=== PATIENT | female | born 1970 | race Caucasian/White ===

== ENCOUNTER → 2022-11-12 10:07 | Outpatient (CLI) | payer OTHER, SELFPAY ==
--- NOTE | 2022-11-12 10:19 | DI.CT.S_ITS ---
PROCEDURE: CT LUMBAR SPINE WO CON INDICATIONS: LUMBAR STENOSIS W/NEUROGENIC CLAUDICATION TECHNIQUE: Noncontrast 3 mm thick sections acquired from the T12 level to the sacrum. Sagittal and coronal reformats were constructed. For radiation dose reduction, the following was used: automated exposure control. COMPARISON: [facility] MR, MR LUMBAR SPINE WITHOUT CONTRAST, 12/26/2021, 15:07. [facility] Outside Film, CT, CT LUMBAR SPINE WITHOUT CONTRAST, 08/07/2022, 8:07. FINDINGS: Image quality: Excellent. Bones: There is normal bony alignment. No acute vertebral body compression fractures. No suspicious lytic or blastic bony lesions. No pars defects. T12-L1: Normal appearance L1-L2: Normal appearance L2-L3: Normal appearance L3-L4: Normal appearance L4-L5: Again noted is moderate multifactorial canal stenosis secondary to diffuse disc bulge and facet and ligament hypertrophy. There is [id number] bilateral foraminal narrowing. L5-S1: Again noted is a left paracentral disc protrusion with a degree of impingement on the left S1 nerve root in the left lateral recess. The right foramen is patent. There is moderate left foraminal narrowing. Soft tissues: No retroperitoneal masses or hematomas. Visualized aorta is normal in caliber. IMPRESSION: 1. Unchanged findings. 2. Moderate canal stenosis at L4-L5. 3. A left paracentral disc protrusion at L5-S1 results in a degree of impingement on the left S1 nerve root in the left lateral recess. There is also moderate left foraminal narrowing at this level. Dictated by: Cj Boudreaux M.D. on 11/12/2022 at 14:37 Approved by: Cj Boudreaux M.D. on 11/12/2022 at 14:43
== END ==
PROVIDERS: PCP Family Medicine; Referring Provider Orthopaedic Surgery Orthopaedic Surgery of the Spine; Visit Provider Orthopaedic Surgery Orthopaedic Surgery of the Spine
DX: M48.07 Spinal stenosis, lumbosacral region (principal); M51.27 Other intervertebral disc displacement, lumbosacral region; M48.062 Spinal stenosis, lumbar region with neurogenic claudication
CPT/HCPCS: 72131

== ENCOUNTER 2022-11-18 09:34 | Inpatient (IN) | payer OTHER, SELFPAY ==
[2022-11-06 07:57] VITALS: BMI 36.6
[2022-11-18] VITALS (23 sets, daily range): BP systolic 81–169; BP diastolic 43–99; PULSE 85–104; RESP 10–18; TEMP 36–36.9; O2SAT 91–98; BMI 36.6
[2022-11-18] MEDS: LACTATED RINGERS 1,000 ML 42 ML IV ×2 (10:27→16:32)
--- NOTE | 2022-11-18 11:23 | PM.PREOP ---
Pre-operative Note COVID-19 Criteria for continued procedure: Expected advancement of disease process, Possibility delay results in more complex future surgery or treatment, Increased loss of function, Continuing or worsening of significant or severe pain, Deterioration of the patient's condition or overall health and Delay expected to result in less-positive ultimate med/surg outcome Interval Note History & Physical reviewed/Exam performed by Physician: Yes Changes to H&P: No
[2022-11-18] MEDS: CEFAZOLIN 2 GM/100 ML PREMIX 100 ML IV ×2 (12:12→19:37)
--- NOTE | 2022-11-18 12:48 | SUR.OPER ---
Prone on spine table, head in foam head support, padded chest and pelvic supports, gel pad at knees, lower legs supported by pillows; nipples, genitalia and toes free of pressure, arms secured on foam padded arm boards at <90 degrees abduction. Tape over blanket at thigh secured to table.
[2022-11-18] MEDS: BUPIVACAINE 0.25% (PF) 60 ML, EPINEPHrine 0.15 MG INJ (12:57)
[2022-11-18] MEDS: BUPIVACAINE LIPOSOME 266 MG/20 ML VIAL INJ (12:58)
[2022-11-18] MEDS: ACETAMINOPHEN IV 1,000 MG/100 ML VIAL 400 MG IV (14:38)
--- NOTE | 2022-11-18 15:04 | DI.RAD.S_ITS ---
PROCEDURE: XR LUMBAR SPINE 2-3V INDICATIONS: L 4-5, L5-S1 TLIF TECHNIQUE: 2 views of the lumbar spine were acquired. COMPARISON: None. FINDINGS: Bones: Limited fluoroscopic views of L4 through S1 TLIF. The hardware appears intact. IMPRESSION: Limited fluoroscopic views of L4 through S1 TLIF. The hardware appears intact. Dictated by: Gerardo Vieira M.D. on 11/18/2022 at 16:00 Approved by: Gerardo Vieira M.D. on 11/18/2022 at 16:00
--- NOTE | 2022-11-18 15:18 | PM.OP.1 ---
Operative Date/Time/Diagnoses Date of procedure: 11/18/22 Time of procedure: 12:50 Pre-op diagnosis: 1. L4-5, L5-S1 spinal stenosis with neurogenic claudication 2. Lumbar spondylosis with radiculopathy Post-op diagnosis: same Procedure & Clinicians Procedure: 1. L4-5, L5-S1 Postero-lateral and posterior interbody fusion 2. L4-5, L5-S1 interbody cage placement. 3. L4-5, L5-S1 decompressive laminectomy with bilateral facetecomies 4. L4-5, L5-S1 Posterior segmental instrumentation 5. [place] of bone marrow from iliac crest 6. Utilization of microsurgical technique and operating microscope 7. Utilization of robotic assisted navigation Same procedure as scheduled: Yes Indications: Patient has been having chronic back pain and worsening lumbar radiculopathy and symptoms of neurogenic claudication. Patient failed multiple conservative management with worsening pain weakness and numbness in her lower extremity. Patient has been having difficulty performing activity of daily living. After discussing risks benefits of treatment options, patient elected proceed with surgery. Surgeon: Waleska Orta Auxiliary Engineer: Lilian Cortez Click Yes if Unassisted: No Anesthesia Type: General Operative Notes Closure Type: primary Specimen(s): none sent Prosthetic devices, grafts, tissues, transplants, or devices: Globus CREO MIS screws, Rise cages Applied: catheter Estimated Blood Loss (mL): 50 Blood products transfused: none Procedure in detail: Patient was seen in the preoperative area. Risks and benefits of the surgery was discussed with the patient. Informed consent was obtained from the patient and placed in the chart. Surgical site was marked. Patient was taken to the operative room. General anesthesia was administered. Prophylactic antibiotic was given to the patient less than 30 min before the incision was made. Patient was placed into a prone position on the Javier table. Patient's back was then prepped and draped in the sterile fashion. Time-out was performed at this time. After patient was prepped and draped, patient's PSIS was palpated and marked bilaterally. Small 1 cm incision was made over the PSIS for placement of the reference probes. Two trocar was placed into the PSIS 1 on each side. The reference probe was attached to the trocar of the reference apparatus. At this time the C-arm imaging was used to confirm AP and lateral of L4-L5, L5-S1 vertebrae and merged the C-arm imaging using the [employer] robotic navigation system with the CT of the lumbar spine. After successful merging was completed and confirmed, skin marker was used to diane out the skin incision using the [employer] robotic arm. Bilateral incision was made at this time. Pre templated trajectory was used and guided using the [employer] robotic navigation system for bilateral L4, L5, S1 pedicle screw placement. This was done by using the robotic arm to guide the high-speed bur to make a cortical entry point. Next a drill was placed also using the robotic arm and guided using the navigation system drilling partially through bilateral L4, L5 and S1 pedicles. Next L4, L5, S1 pedicle screws it was pre templated and measured was placed onto the power party bus driver and inserted into the pedicles bilaterally. After all 6 screws were placed C-arm imaging was taken of both AP and lateral to confirm the placement. Excellent placement of the screws were confirmed and a matched precisely with the pre planned screw placement using the navigation system. MARs retractor was inserted using peer[employer] guidence. Globus MARS retractors was placed inside the incision and docked onto the L4 and L5 lamina. Using microsurgical technique and operating microscope, a L4, L5 laminectomy and L4-5, L5-S1 facetectomy was performed using a Kerrison rongeur. The laminectomy and facetectomy was performed in order to decompress patient's cauda equina as well as the nerve roots exiting at the L4-5, L5-S1 level. Patient was found have severe lateral recess and neural foramen stenosis which was fully decompressed after the laminectomy facetectomy. More than 75% of the facets were removed during the process of decompression rendering L4-5, L5-S1 level grossly unstable and required a fusion procedure at the same time. The disc space at L4-5, L5-S1 was identified, and a total diskectomy was performed at L4-5, L5-S1 level. The endplates were decorticated using a rasp and shaver. The total diskectomy and decortication was performed at L4-5, L5-S1 level in order to to accomplish a L4-5, L5-S1 fusion. The local bone from the laminectomy and facetectomy was saved for local bone grafting. After the total diskectomy and decortication was completed, Trifecta bone graft material was combined with local bone that was harvested earlier. At this time, a separate skin is incision was made over the iliac crest. A Jamshidi needle was inserted into the iliac crest through a separate skin incision. 5 cc of bone marrow aspiration was obtained through the separate skin incision using a Jamshidi needle from the iliac crest. The bone marrow aspiration was combined with local bone and the Trifecta bone grafting material. The bone grafting material was placed into the L4-5, L5-S1 interbody space along with a expandable cage. The cage was expanded to its maximum height using the torque limiting screwdriver. The disc preparation as well as the cage insertion were also performed under navigation guidance. After the cage was placed, AP and lateral C-arm imaging was taken to confirm placement of the cage and excellent position was confirmed. Globus MARS retractor was inserted and docked onto the L4-5, L5-S1 posterolateral gutter on the right side. Using the power drill, posterior-lateral decortication was performed at L4-5, L5-S1 level until bleeding cortical bone was identified. The remaining bone grafting material was placed into the L4-5, L5-S1 posterior lateral gutter he order to accomplish posterolateral fusion at the L4-5, L5-S1 level. At this time the tulips were attached to the L4, L5, S1 pedicle screw shanks. After measuring the length of the rods, they were inserted into the tulips of the pedicle screws and locked in place using locking caps and torque limiting screwdriver bilaterally. Total 6 caps and 2 titanium rods was used in order to complete the posterior instrumentation construct. After all the hardware was placed, and confirmed with AP and lateral C-arm imaging, the wound was then irrigated with sterile normal saline and packed with Ray-Abraham gauze for 3 min to accomplish hemostasis. After the gauze was removed the deep fascia was closed with #1 Vicryl suture. The subcutaneous layer was closed with 2-0 Vicryl. The skin was closed with skin nacho. Patient tolerated the procedure well. There were no complications. The Operation could not have been safely performed without compromising the technical result or length of the procedure, without the assistance of a skilled medical surgical tech. The medical surgical tech was medically necessary for proper positioning, retraction and manipulation of instruments, proper exposure, surgical preparation, and manipulation of tissue. Neuro monitoring system was used to monitor patient's neurologic status throughout entire procedure. There was no disturbance of the neural monitoring signals throughout the case. Complications: none Post-operative Condition: stable Disposition: PACU Plan for aftercare: Admit to inpatient hospital
--- NOTE | 2022-11-18 17:25 | SUR.PHASEI ---
SBAR report called Tiny NELSON. Pt transfered to room 208 by Calin Nelson on [facility] cell [facility].
--- NOTE | 2022-11-18 18:37 | PC.NURSE ---
Patient complains of pain and then falls right back to sleep, hesitent to give patient pain medication at this time. Will wait until she is more awake. Dressing to low back is cdi, she is tolerating ivf and is at bedside.
[2022-11-18] MEDS: OXYCODONE IR 10 MG TABLET PO (19:35)
[2022-11-18] MEDS: LACTATED RINGERS 1,000 ML 125 ML IV (19:36)
[2022-11-18] MEDS: CYCLOBENZAPRINE 10 MG TABLET 5 MG PO (20:46)
[2022-11-18] MEDS: SENNOSIDES 8.6 MG TABLET 17.2 MG PO (20:47)
[2022-11-18] MEDS: carvediloL 12.5 MG TABLET 25 MG PO (20:47)
[2022-11-18] MEDS: METFORMIN HCL 500 MG TABLET 1000 MG PO (20:47)
[2022-11-18] MEDS: SERTRALINE 50 MG TABLET 100 MG PO (20:47)
[2022-11-18] MEDS: DOCUSATE 100 MG CAPSULE PO (20:47)
[2022-11-18] MEDS: INSULIN LISPRO 100 UNIT/ML 3ML VIAL SUBCUT (20:48)
[2022-11-18] MEDS: INSULIN NPH 100 UNIT/ML 10ML VIAL 35 UNIT SUBCUT (20:49)
[2022-11-18] MEDS: HYDROMORPHONE 0.5 MG INJ IV (22:07)
[2022-11-18] MEDS: LORazepam 0.5 MG TABLET PO (23:54)
[2022-11-18] MEDS: ACETAMINOPHEN 325 MG TABLET 650 MG PO (23:54)
[2022-11-19] VITALS (13 sets, daily range): BP systolic 105–135; BP diastolic 59–75; PULSE 93–131; RESP 16–18; TEMP 36.3–38.2; O2SAT 91–96
[2022-11-19] MEDS: OXYCODONE IR 10 MG TABLET PO ×6 (02:06→23:36)
[2022-11-19] MEDS: CEFAZOLIN 2 GM/100 ML PREMIX 100 ML IV (04:11)
[2022-11-19] MEDS: HYDROMORPHONE 0.5 MG INJ IV (04:12)
[2022-11-19 05:42] LABS: Hematocrit 37.1 % (36-46); Hemoglobin 12.4 g/dL (12.0-16.0)
--- NOTE | 2022-11-19 07:39 | PM.PNPO.1 ---
Subjective Subjective Date Patient Seen: 11/19/22 Time Patient Seen: 07:39 Interval history: Patient's pain is moderate. Patient has not been out of bed since after surgery. Patient has her home to assist her. No fever or chills. No nausea or vomiting. Exam Vital Signs (past 8 hours): - 11/18/22 23:54 11/19/22 04:13 Temperature 97.3 F L 97.3 F L Pulse Rate 97 H 93 H Respiratory Rate 18 16 Blood Pressure 142/80 H 135/75 Pulse Oximetry 96 96 Oxygen Flow Rate 1 1 Fraction of Inspired Oxygen 24 SaO2/FiO2 Ratio 387 Oxygen Delivery Method Nasal Cannula Oxygen Flow Rate 1 Narrative Exam Narrative: 52-year-old female resting comfortably in bed in no apparent distress. Motor functions intact bilateral lower extremities. Const General: cooperative and comfortable Nutritional Appearance: average body habitus Orientation: alert Resp Effort & Inspection: normal respiratory effort and able to speak in complete sentences Objective Labs 11/19/22 05:00 Labs: Laboratory Results - last 24 hr 11/19/22 05:00 Hgb 12.4 Hct 37.1 PFSH Medical History Allergic rhinitis Anemia Anxiety Arthritis Depression Diabetes (2003) History of COVID-19 (07/2021) History of syncope HLD (hyperlipidemia) HTN (hypertension) PVCs (premature ventricular contractions) Sciatica Spinal stenosis Uses self-applied continuous glucose monitoring device Vitamin D deficiency Surgical History History of surgery (10/2021) Hx of appendectomy (1995) Hx of cholecystectomy (1995) Hx of dilation and curettage (09/28/19) Hx of removal of cyst Social History household members: spouse and children Smoking Status: Never smoker alcohol intake: never Assessment & Plan Post-op Postoperative Procedures: Procedures Operation Date: 11/18/22 11:15 Actual Procedure Side Surgeon p L4-5, L5-S1 TLIF w. posterior instrumentation -Robot Waleska Orta MD Postoperative day: 1 Postoperative status: doing well Postoperative plan: routine post-op care Postoperative plan narrative: Disposition possible home today or tomorrow Quality VTE Deep Vein Thrombosis/Pulmonary Embolism Present on Admission: No
[2022-11-19] MEDS: LOSARTAN 25 MG TABLET PO (08:39)
[2022-11-19] MEDS: EZETIMIBE 10 MG TABLET PO (08:39)
[2022-11-19] MEDS: carvediloL 12.5 MG TABLET 25 MG PO ×2 (08:40→20:33)
[2022-11-19] MEDS: FERROUS SULFATE 325 MG TABLET PO (08:40)
[2022-11-19] MEDS: DOCUSATE 100 MG CAPSULE PO ×2 (08:40→20:32)
[2022-11-19] MEDS: METFORMIN HCL 500 MG TABLET 1000 MG PO (08:41)
[2022-11-19] MEDS: INSULIN LISPRO 100 UNIT/ML 3ML VIAL SUBCUT ×3 (09:01→17:14)
[2022-11-19] MEDS: INSULIN NPH 100 UNIT/ML 10ML VIAL 35 UNIT SUBCUT ×2 (09:01→20:52)
--- NOTE | 2022-11-19 09:12 | PT.IIE ---
Current Diagnoses Other spondylosis with radiculopathy, lumbar region (11/18/22) Spinal stenosis, lumbar region with neurogenic claudication (11/18/22) Surgery Performed Operation Date: 11/18/22 11:15 Actual Procedures p L4-5, L5-S1 TLIF w. posterior instrumentation -Robot - Waleska Orta MD Surgical History (Last Reviewed 11/19/22 @ 07:41 by Niels Samuel PA-C) History of surgery (10/2021) Hx of appendectomy (1995) Hx of cholecystectomy (1995) Hx of dilation and curettage (09/28/19) Hx of removal of cyst Medical History (Last Reviewed 11/19/22 @ 07:41 by Niels Samuel PA-C) Allergic rhinitis Anemia Anxiety Arthritis Depression Diabetes (2003) History of COVID-19 (07/2021) History of syncope HLD (hyperlipidemia) HTN (hypertension) PVCs (premature ventricular contractions) Sciatica Spinal stenosis Uses self-applied continuous glucose monitoring device Vitamin D deficiency Physical Therapy Inpatient Evaluation/Re-Eval M1 PT/OT-IP Prior Functional Status Start: 11/19/22 11:51 Freq: NEEDED Status: Active Protocol: Document 11/19/22 09:12 AB (Rec: 11/19/22 11:53 AB [id number]) Medical Review Prior Functional Status Medical History Reviewed Yes Communication able to make needs known Mobility and Gait pt stated that she is independent with all mobilities and ambulation without AD Social History Household Members spouse Living Arrangements House Number of Floors (Floors) One Floor Number of Stairs To Enter/Railing? 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 pt stated that her mother has a walker but not sure what type M2 PT-IP Current Condition Start: 11/19/22 11:51 Freq: NEEDED Status: Active Protocol: Document 11/19/22 09:12 AB (Rec: 11/19/22 11:54 AB [email or web address]) Physical Therapy Current Condition Current Condition Evaluation Date 11/19/22 Treatment Diagnosis s/p L4-5, L5S1 TLIF; difficulty in walking Onset Date 11/18/22 M3 PT-IP Subjective Start: 11/19/22 11:51 Freq: NEEDED Status: Active Protocol: Document 11/19/22 09:12 AB (Rec: 11/19/22 11:55 AB [email or web address]) Subjective Physical Therapy Visit Type Type Initial Evaluation Visit Start Time 09:12 Visit Stop Time 09:48 Total Visit Minutes 36 Number of 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 Physical Therapy Visit Comments Patient Comments agreeable to do PT Therapy Pain Assessment Pain When Pain Assessed At Rest Pain Present Pain Present Pain Reported Location Lower Back Intensity 8 Scale Used Numeric (0 - 10) Description Spasm Pain Management Techniques Distraction,Modification of Treatment,Re-positioning, Timing of Activity with Medications M4 PT-IP Mobility and Gait Start: 11/19/22 11:51 Freq: NEEDED Status: Active Protocol: Document 11/19/22 09:12 AB (Rec: 11/19/22 13:29 AB [email or web address]) PT-Bed Mobility Assessment Rolling Type of Rolling Log Rolling Level of Assist Moderate Assistance Supine to Sit Supine to Sit Minimal Assistance,1 Person Assistance Sit to Supine Sit to Supine Moderate Assistance,1 Person Assistance Scooting Scooting Up and Down in Bed Maximum Assistance PT-Transfer Assessment Comments Mobility Comments pt spine in bed and spouse in room. pt agreeable to do PT. BP in supine: 118/66. educated pt on back precautions and log roll bed mobility. pt completed log roll supine to sit mod A and max cues. able to sit on EOB SBA. c/o dizziness. BP checked: 95/57. pt sat on EOB for ~ 1 min and continues to c/o dizziness. BP checked: 87 /51. instructed pt to lay back in bed and completed log roll sit to supine mod A and cues. positioned pt in bed. max A x 2 for scooting up to the bed. BP checked: 101/52. nurse aware of low BP. Call light and table placed within reach. PT-Balance Assessment Sitting Balance and Reactions Static Sitting Balance Ability Good Dynamic Sitting Balance Ability Good Standing Balance and Reactions Device Used n/t M5 PT-IP Objective Assessments Start: 11/19/22 11:51 Freq: NEEDED Status: Active Protocol: Document 11/19/22 09:12 AB (Rec: 11/19/22 13:29 AB [email or web address]) Orientation Orientation/Cognition Level of Alertness Alert Orientation Name,Place,Situation Language Function Ability No Deficits Noted Safety Awareness Decreased Safety Awareness Memory Description No Deficits Noted Gross Range of Motion Lower Extremity ROM Assessment Within Functional Limits Strength Comments Strength Comments RLE: 4-/5 LLE: 4/5 Sensation Assessment Sensation Gross Sensation WNL Muscle Tone Muscle Tone WNL Yes M6 PT-IP Treatment Start: 11/19/22 11:51 Freq: NEEDED Status: Active Protocol: Document 11/19/22 09:12 AB (Rec: 11/19/22 13:29 AB [email or web address]) Physical Therapy Treatment Education Education Provided Precautions,Weight Bearing Status,Post-Op Packet,Safety M7 PT-IP Assessment and Plan Start: 11/19/22 11:51 Freq: NEEDED Status: Active Protocol: Document 11/19/22 09:12 AB (Rec: 11/19/22 13:29 AB [email or web address]) PT Summary Assessment and Plan Potential Rehabilitation Potential Fair Status of Condition at Evaluation Evolving Summary Impairments Pain,ROM,Strength,Balance, Coordination,Bed Mobility, Transfers,Gait,Activity Tolerance Assessment Summary pt s/p L4-5 L5S1 TLIF POD1. pt unable to tolerate much activity this morning and presents with orthostatic hypotension with BP decreased to 87/51 in sitting from 118/ 66 supine. pt requiring mod A with log roll bed mobility. unable to stand, transfer or ambulate at this time. pt plans to go home with spouse to assist her. will conduct caregiver training when appropriate as well as stair climbing training. will continue to assess progress. Goals Bed Mobility Goal Standby Assistance Transfer Goal Standby Assistance,Front Wheeled Walker Gait Goal Standby Assistance,Front Wheel Walker Gait Distance 150 Other Goals improve bed mobility, transfers and ambulation using FWW mod I 250 ft up/down 2 platform steps using FWW SBA Days to Meet Goals 10 Frequency of Treatment Frequency Of Treatment Twice a Day Treatment Plan Physical Therapy Treatment Plan Bed Mobility Training,Transfer Training,Gait Training, Therapeutic Exercise,Balance Retraining,Post Op Education, Discharge Planning,Hot or Cold Pack,Neuromuscular Re-ed, Coordination Retraining,Manual Therapy Other Recommendations and Next Treatment pt will be seen for PT bid or Focus as tolerated Precautions Lumbar Precautions Log Roll,No Twisting,Limit Bending,Lifting Restriction of 10 lbs,Gait Belt above Incisional Area Recommendations To Nursing Amount of Assist Needed PT/OT Assist Only Discharge Recommendations PT Discharge Recommendations Home with Assistance Equipment Needed for Home Before FWW Discharge Transportation Needs at Discharge Private Vehicle
[2022-11-19] MEDS: CYCLOBENZAPRINE 10 MG TABLET 5 MG PO ×2 (10:25→20:37)
--- NOTE | 2022-11-19 10:48 | PC.NURSE ---
Addendum entered by Quan Pappas R.N. 11/19/22 18:41: Pt declined to have Bowden removed as she hasn't been able to successfully stand or sit for any length of time today. PT will work with Pt again in the a.m. Addendum entered by Quan Pappas R.N. 11/19/22 15:25: Pt restful at present. see PT/OT note. Original Note: A&O well versed in her diabetes care. Tried up with PT without success b/p 80/56 hr 120. Pt settled to bed.
[2022-11-19] MEDS: INSULIN LISPRO 100 UNIT/ML 3ML VIAL 10 UNIT SUBCUT ×2 (12:24→17:14)
--- NOTE | 2022-11-19 14:10 | OT.IP.EVAL ---
Current Diagnoses Other spondylosis with radiculopathy, lumbar region (11/18/22) Spinal stenosis, lumbar region with neurogenic claudication (11/18/22) Surgery Performed Operation Date: 11/18/22 11:15 Actual Procedures p L4-5, L5-S1 TLIF w. posterior instrumentation -Robot - Waleska Orta MD Past Medical History (Last Reviewed 11/19/22 @ 07:41 by Niels Samuel PA-C) Allergic rhinitis Anemia Anxiety Arthritis Depression Diabetes (2003) History of COVID-19 (07/2021) History of syncope HLD (hyperlipidemia) HTN (hypertension) PVCs (premature ventricular contractions) Sciatica Spinal stenosis Uses self-applied continuous glucose monitoring device Vitamin D deficiency Surgical History (Last Reviewed 11/19/22 @ 07:41 by Niels Samuel PA-C) History of surgery (10/2021) Hx of appendectomy (1995) Hx of cholecystectomy (1995) Hx of dilation and curettage (09/28/19) Hx of removal of cyst Occupational Therapy Inpatient Evaluation/Re-Eval M1 PT/OT-IP Prior Functional Status Start: 11/19/22 14:40 Freq: NEEDED Status: Active Protocol: Document 11/19/22 13:43 [facility] (Rec: 11/19/22 14:52 [facility] [id number]) Medical Review Prior Functional Status Medical History Reviewed Yes Communication able to make needs known Mobility and Gait pt stated that she is independent with all mobilities and ambulation without AD Activities of Daily Living and IADL's Increased pain with ADl and IADL needs. 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 Social History Household Members spouse Living Arrangements House Number of Floors (Floors) One Floor Number of Stairs To Enter/Railing? 2 platform steps to enter the house Home Environment Standard Height Toilet,Walk in Shower Home Equipment Raised Toilet Seat w/Armrests, Hand Held Shower,Grab Bars In Shower Employment Status [employer] Employed Additional Social History Comment pt stated that she works as a book keeper pt stated that her mother has a walker but not sure what type M2 OT-IP Current Condition Start: 11/19/22 14:40 Freq: Status: Active Protocol: Document 11/19/22 13:43 [facility] (Rec: 11/19/22 14:52 [facility] [id number]) Occupational Therapy Current Condition Current Condition Evaluation Date 11/19/22 Treatment Diagnosis S/p L4-5, L5-S1 TILF Diagnosis Onset Date 11/18/22 Post Operative Precautions Lumbar Precautions Log Roll,No Twisting,Limit Bending,Lifting Restriction of 10 lbs,Gait Belt above Incisional Area M3 OT- IP Subjective and Pain Start: 11/19/22 14:40 Freq: Status: Active Protocol: Document 11/19/22 13:43 [facility] (Rec: 11/19/22 14:52 [facility] [id number]) OT- Subjective Occupational Therapy Visit Type Type Initial Evaluation Visit Start Time 13:43 Visit Stop Time 14:10 Total Visit Minutes 27 Occupational Therapy Visit Comments Patient Comments Pt agreed to try to get up. Patient/Caregiver Goals TO go home. OT Pain Assessment Pain When Pain Assessed At Rest Pain Present Pain Present Pain Reported Location Lower Back Intensity 8 Scale Used Numeric (0 - 10) M4 OT- IP ADL's Start: 11/19/22 14:40 Freq: Status: Active Protocol: Document 11/19/22 13:43 [facility] (Rec: 11/19/22 14:52 [facility] [id number]) OT [id number] Comments OT Self-Feeding Comments No issues anticipated. OT ADL-Grooming Comments OT Grooming Comments No issues anticipated, not performed due to low BP. OT ADL-Oral Care Comments Oral Care Comments Not performed. OT ADL-Dressing General Eval Lower Body Dressing Ability Maximum Assistance Comments OT Dressing Comments Able to practice use of breakfast and room attendant and sock aid with pt before pt not feeling well/ nauseated while seated on the edge of the bed. OT ADL-Toileting General Evaluation Toileting Ability Total Assistance Comments OT Toileting Comments Bow[place] in place. Pt has a toilet paper wand at home to use. Suggested use of wet ones , brief/pads, and to try to mandy drinking her liquids at night. OT ADL-Bathing Comments OT Bathing Comments Not performed. M5 OT- IP IADL's Start: 11/19/22 14:40 Freq: Status: Active Protocol: Document 11/19/22 13:43 [facility] (Rec: 11/19/22 14:52 [facility] [id number]) OT-Instrumental Activities of Daily Living Deficits IADL Deficits Identified Deficits Home Safety Awareness Awareness of Need for Assistance at Home Good Awareness Ability to Problem Solve Emergency Able to Problem Solve Situations Home Safety Comments Pt has a supportive to be able to assist her for the next 2 weeks. M6 OT- IP Functional Cognition Start: 11/19/22 14:40 Freq: Status: Active Protocol: Document 11/19/22 13:43 [facility] (Rec: 11/19/22 14:52 [facility] [id number]) Cognitive Factors Limiting Selfcare Function Cognitive Ability Level of Alertness Alert Patient Orientation Name,Place,Situation Attention Span Ability Capable of Focused Attention, Capable of Sustained Attention Ability to Follow Commands Able to Follow One Step Commands Safety Awareness Decreased Recall of Precautions Cognitive Comments Cognitive Assessment Comments Pt not able to recall her precautions, but after initial education able to recall her back precautions. OT- Vision and Hearing OT- Hearing Assessment OT- Hearing Assessment WFL OT- Vision Assessment Visual Acuity Contact Lenses M7 OT- IP Mobility and Balance Start: 11/19/22 14:40 Freq: Status: Active Protocol: Document 11/19/22 13:43 [facility] (Rec: 11/19/22 14:52 [facility] [id number]) OT- Bed Mobility Assessment Rolling Level of Assistance Contact Guard Assistance Supine to Sit Supine to Sit Assist Contact Guard Assistance Sit to Supine Sit to Supine Assist Minimal Assistance OT-Transfer Assessment Comments Mobility Comments BP Supine 127/75, CGA to get to the edge of the bed. Sitting BP 135/71 and after several minutes dropped to 118 /65 and pt not feeling well and dizzy and helped back to supine and BP 115/63. OT- Balance Assessment Sitting Balance and Reactions Static Sitting Balance Ability Good Dynamic Sitting Balance Ability Good M9 OT- IP Assessment and Plan Start: 11/19/22 14:40 Freq: Status: Active Protocol: Document 11/19/22 13:43 [facility] (Rec: 11/19/22 14:52 [facility] [id number]) OT Summary Assessment and Plan Potential Rehabilitation Potential Good Analytic Complexity at Evaluation Low Summary OT Impairments Pain,Strength,Balance, Functional Mobility,Grooming, Dressing,Toileting,Bathing, Toilet Transfers,Shower Transfers Progress Towards Goals Slow Progress due to Pain,Slow Progress due to Medical Issues Assessment Summary Pt low complexity and main barriers are low BP after sitting up and steps. Pt just able to tolerate sitting up at the edge of the bed today. Pt hoping to go home when medically stable and her to be there to assist. Goals Grooming Goal Independent Dressing Goal Independent Toileting Goal Independent Bathing Goal Standby Assistance Toilet Transfer Goal Independent Shower Transfer Goal Independent Patient/Caregiver Education Goal Demonstrate Post-Op Precautions,Caregiver Independent Assisting Patient Days to Meet Goals 5 Frequency of Treatment Frequency Of Treatment Once a Day Treatment Plan OT Treatment Plan ADL Training,Functional Mobility,Patient/Family Education,Discharge Planning Other Treatment Recommendations and Next caregiver training Treatment Focus Discharge Recommendations OT Discharge Recommendations Home with Assistance Other Discharge Recommendations Pending progress most likely home with assist. Transportation Needs at Discharge Private Vehicle
--- NOTE | 2022-11-19 14:18 | PT-IP ANOTE ---
Pt found in room with OT, OT reports pt continues to be orthostatic with symptoms and is not appropriate at this time. Will check back in tomorrow morning.
--- NOTE | 2022-11-19 14:39 | CM.DANOTE ---
Patient is a 52 yo female who was admitted on 11/18/22 for TLIF. Pt has [place] for insurance and her PCP is Eileen Hector. EMR was reviewed. Per Ortho, pt tolerated procedure well and pending therapies can likely d/c home when stable. Per PT/OT, able to work with pt a little today with bed mobility but due to orthostatics were limited on eval. Pt currently requiring assist due to dizziness but anticipate pt will progress once bp issues stable for home with spouse assist and FWW. Will need to do CG training and stairs when pt more medically appropriate. SW met bedside with pt and spouse and they confirm they live in [place] and are active and independent at baseline. Pt drives, does not use DME for ambulation at baseline, and completes ADLs independently. 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 Pt and spouse preference is home when stable and hopeful to feel better tomorrow to work with PT/OT for d/c to home. Pt thinks she has access to a FWW at d/c. Plan: SW to follow for additional PT/OT tomorrow when bp more stable to confirm safe d/c home with spouse assist and any further identified discharge planning needs. NIDA Oh Discharge Planning/Care Management CM Discharge Assessment Start: 11/19/22 14:37 Freq: Status: Active Protocol: Document 11/19/22 14:37 BF (Rec: 11/19/22 14:38 BF [id number]) Discharge Planning Assessment Assigned Hair Spring Cutter NIDA Madrigal DPOA/Assigned Designee Name spouse Toshannan Contact Information [phone] Advance Directives? No Advance Directives on File No History Provided By Patient,Significant Other, Medical Record Has Patient been admitted in last 30 No days? Prior Living Arrangements House Household Members spouse Type of transporation used prior to Drives own vehicle admit Independent with ADL's Yes Is patient alert and oriented? Yes Caregiver for Another No Community Services used prior to Physical Therapy admission: Patient/Family Preference OP PT Therapy Barriers to Discharge No Discharge Plan Home Transportation Arrangement spouse plans to provide transport at d/c Referrals Initiated None needed Additional Comment Pending further PT/OT and orthostatics Whiteboard Updated in Patient Room with Yes name and ext. # of Hair Spring Cutter Review Status In Process Please Provide Date Initial DC 11/19/22 Assessment Was Performed Next Review Type Continued Stay Review Pre-Anesthesia Assessment Start: 11/04/22 09:40 Freq: Status: Complete Protocol: Document 11/06/22 07:57 CAB (Rec: 11/04/22 10:42 CAB [id number]) Pre-Anesthesia Assessment Patient Information Reviewed Via Phone Assessment Assessment Completed With Patient Diagnostic Results BMP/CMP,CBC,EKG Comment Outside labs/EKG scanned Primary Care Provider Eileen Hector Seen Specialist in Last 12 Months Yes Specialist Seen Jersey Knitter,Derrick Hand, Orthopedist Comment Endocrine visit 10/02/22 scanned Primary Language Liberian Zoo Director Required No Height 157.48 cm Weight 90.718 kg Body Mass Index (BMI) 36.6 Hearing Ability Normal Visual Assist Contacts,Glasses Dentition Type Teeth, Natural Present Barriers to Learning None Hx Anesthesia Reactions No Hx Family Anesthesia Reaction No Hx Malignant Hyperthermia No Hx Blood Transfusions No Anesthesia Review Requested No Certified Breastfeeding Educator No alcohol intake never Smoking Status Never smoker Substance Use Type does not use Pain Present Pain Reported Musculoskeletal Symptoms Back Pain,Radiating Pain into Limb History of Falling (Recent or History of No ) Patient is completely paralyzed or No completely immobile Mental Status Oriented to own ability Is patient on oxygen? No Does patient have NOWAK/SOB No Hx Sleep Apnea No Currently Taking a Beta Amalia Yes: Carvedilol Can You Climb a Flight of Stairs Without Yes SOB Hx Chest Pain No Hx SOB No Hx Syncope or Dizziness Yes: Related to in-office invasive procedures Anti-Coagulant Therapy No Has a Jersey Knitter Yes: Last visit 10/19/[address] Danielson Cardiac Testing No Hx Pacemaker/ICD No Pacemaker Rep Required? No Comment Cardiac records scanned Diet Type At Home Regular Dysphagia No Urinary Catheter Present No Hx Urinary Self Catheterization No Diabetes Yes: Pt wears CGM HgbA1C 8.5 Date 07/24/22 Patient No Lactating No Presence of External or Internal Medical Yes: Continuous glucose Devices monitor Have you had any close contact with No someone diagnosed with COVID-19? Received a COVID vaccine? Yes Received all doses? Yes Marital Status Lives With spouse,children Current Living Arrangements House Number of Floors (Floors) One Floor Support System Child/Children,Spouse Does the Patient Have Assistance After Yes Surgery Patient Discharge Plan Description Return Home Comment Pt advised 1-2 night length of stay per surgeon Feels Safe in Current Environment Yes Been Physically Hurt or Threatened By a No Person in Current Environment Do you have thoughts of harming yourself None or others? Are you currently considering suicide? No Do you have a plan to hurt yourself or No Plan others? Do You Have Any Spiritual Beliefs That No May Affect Your HC Choices? Do You Have Any Cultural Practices That No May Affect Your HC Choices? Who Can We Speak to About Patient's Care Family, friends Identifying Code for Release of Patient Declines to issue Information Health Care Proxy/Next of Kin Lázaro () Health Care Proxy Emergency Contact Name Lázaro () Emergency Contact Advance Directives? No Power of Bow Making Machine Operator No PAC Instructions Durable medical equipment, Medications to take/avoid, Nasal antibiotic,No ETOH/ petroleum product on skin DOS, NPO,Post-op transportation, Sensory aids,Sturdy shoes/ comfortable clothes,Do not bring valuables and remove jewelry
[2022-11-19] MEDS: SERTRALINE 50 MG TABLET 100 MG PO (20:32)
[2022-11-19] MEDS: SENNOSIDES 8.6 MG TABLET 17.2 MG PO (20:32)
[2022-11-19] MEDS: ACETAMINOPHEN 325 MG TABLET 650 MG PO (20:35)
[2022-11-20 06:44] VITALS: BP 117/71; PULSE 107; RESP 16; TEMP 37.1; O2SAT 94
[2022-11-20] MEDS: OXYCODONE IR 10 MG TABLET PO ×3 (06:51→14:48)
[2022-11-20] MEDS: ACETAMINOPHEN 325 MG TABLET 650 MG PO (06:51)
[2022-11-20 08:00] VITALS: BP 111/61; PULSE 107; RESP 18; TEMP 36.6; O2SAT 93
--- NOTE | 2022-11-20 08:02 | PM.DS.1 ---
History of Present Illness History of Present Illness Date Patient Seen: 11/20/22 Time Patient Seen: 08:02 Chief complaint: INPT Narrative: Operative Date/Time/Diagnoses Date of procedure: 11/18/22 Time of procedure: 12:50 Pre-op diagnosis: 1. L4-5, L5-S1 spinal stenosis with neurogenic claudication 2. Lumbar spondylosis with radiculopathy Post-op diagnosis: same Procedure & Clinicians Procedure: 1. L4-5, L5-S1 Postero-lateral and posterior interbody fusion 2. L4-5, L5-S1 interbody cage placement. 3. L4-5, L5-S1 decompressive laminectomy with bilateral facetecomies 4. L4-5, L5-S1 Posterior segmental instrumentation 5. Hallie of bone marrow from iliac crest 6. Utilization of microsurgical technique and operating microscope 7. Utilization of robotic assisted navigation Same procedure as scheduled: Yes Indications: Patient has been having chronic back pain and worsening lumbar radiculopathy and symptoms of neurogenic claudication. Patient failed multiple conservative management with worsening pain weakness and numbness in her lower extremity.? Patient has been having difficulty performing activity of daily living.? After discussing risks benefits of treatment options, patient elected proceed with surgery. Surgeon: Waleska Orta Narcotics Investigator: Lilian Cortez Click Yes if Unassisted: No Anesthesia Type: General Operative Notes Closure Type: primary Specimen(s): none sent Prosthetic devices, grafts, tissues, transplants, or devices: Globus CREO MIS screws, Rise cages Applied: catheter Estimated Blood Loss (mL): 50 Blood products transfused: none Discharge Providers Provider Date of admission: 11/18/22 09:34 Discharge Date: 11/20/22 Primary care physician: Eileen Hector MD Consults: 11/18/22 17:26 Consult to Occupational Therapy Evaluate & Treat Comment: Physician Instructions: Evaluate and treat Consult to Physical Therapy Evaluate & Treat Comment: Physician Instructions: Evaluate and Treat Discharge provider: Lilian Cortez PA-C Summary Hospital Course Discharge Diagnosis: L4-5, L5-S1 spinal stenosis with neurogenic claudication, Lumbar spondylosis with radiculopathy; s/p lumbar fusion Hospital Course: [facility] course was significant for orthostatic hypotension and slow progress w/ PT. On the morning of POD# 2 she was feeling much better and wanted to go home. She was eating and voiding without difficulty and her pain was well-controlled with oral medication. PT evaluated her throughout her stay and felt she was appropriate for discharge home. Exam Vital Signs (past 8 hours): - 11/20/22 06:44 Temperature 98.7 F Pulse Rate 107 H Respiratory Rate 16 Blood Pressure 117/71 Pulse Oximetry 94 Oxygen Flow Rate 1 Fraction of Inspired Oxygen 24 SaO2/FiO2 Ratio 387 Oxygen Delivery Method Room Air Oxygen Flow Rate 1 Narrative Exam Narrative: 5/5 strength in hip flexors, quadriceps, hamstrings, DF, PF, EHL bilaterally. Sensation to light touch intact throughout BLE. Calves soft, compressible, nontender and without palpable cords or masses. Dressing placed intraoperatively w/ some old bloody drainage on left. Objective Labs 11/19/22 05:00 PFSH Medical History Allergic rhinitis Anemia Anxiety Arthritis Depression Diabetes (2003) History of COVID-19 (07/2021) History of syncope HLD (hyperlipidemia) HTN (hypertension) PVCs (premature ventricular contractions) Sciatica Spinal stenosis Uses self-applied continuous glucose monitoring device Vitamin D deficiency Surgical History History of surgery (10/2021) Hx of appendectomy (1995) Hx of cholecystectomy (1995) Hx of dilation and curettage (09/28/19) Hx of removal of cyst Social History household members: spouse Smoking Status: Never smoker alcohol intake: never Discharge Assessment & Plan Assessment and Plan Assessment: L4-5, L5-S1 spinal stenosis with neurogenic claudication, Lumbar spondylosis with radiculopathy; s/p lumbar fusion Plan of Treatment: Discharge home, multimodal pain control, f/u in 2 weeks in office as scheduled. Discharge Plan Discharge Plan Patient Disposition: Home Discharge orders & Medications Prescriptions: New oxycodone 5 mg tablet 5 mg PO Q4-6H PRN (Reason: pain, moderate) Qty: 60 0RF docusate sodium 100 mg Capsule 100 mg PO BID PRN (Reason: constipation) Qty: 60 1RF acetaminophen 325 mg Tablet 650 mg PO Q6H PRN (Reason: Fever/Mild Pain (1-3)) Qty: 240 0RF Continued carvedilol 25 mg Tablet 25 mg PO BID Rx Instructions: must administer with a meal/food aspirin 81 mg Tablet,Delayed Release (Dr/Ec) 81 mg PO DAILY lorazepam [Ativan] 0.5 mg Tablet 0.5 mg PO Q8H PRN (Reason: Anxiety) ferrous sulfate 325 mg (65 mg iron) Tablet 325 mg PO DAILY metformin 1,000 mg Tablet 1,000 mg PO BID losartan [Cozaar] 25 mg Tablet 25 mg PO DAILY Humulin N NPH U-100 Insulin 100 unit/mL Suspension 35 unit SUBCUT BID Patient Comments: Took 1/2 dose this am as instructed. ibuprofen 200 mg Tablet 400 mg PO DAILY PRN (Reason: Pain) sertraline 50 mg Tablet 100 mg PO BEDTIME insulin lispro [Humalog Pen] 100 unit/mL Insulin Pen 10 unit SUBCUT TID ezetimibe [Zetia] 10 mg Tablet 10 mg PO DAILY cyclobenzaprine 5 mg Tablet 5 mg PO BID PRN (Reason: Muscle Spasm) Jardiance 25 mg Tablet 25 mg PO QAM Follow up/Referrals: Waleska Orta MD [Physician] - As previously scheduled (Follow up with Niels Samuel PA-C, on 12/04/2022 @ 2:20 pm at [facility] in [place].) Eileen Hector MD [Primary Care Provider] - Diet/Activity/Treatments Diet: Diet as Tolerated Activity: No deep bending or twisting at the waist. No lifting more than 10 pounds. Cold/Heat Therapy: Heating pad to low back as needed for pain. Skin/Wound/Dressing Care Report to your healthcare provider any signs of infection, such as:: chills, fever, night sweats, unusual drainage and unusual redness Dressing: May shower. Keep dressing as dry as possible. If dressing becomes wet or dirty inside, may remove and replace with clean, dry gauze. No bathing or otherwise soaking incisions. Do not apply any creams, lotions or ointments to incisions. Visit Report/Discharge Packet Instructions: DI for Prescription Opioid Use, DI for Transforaminal Lumbar Interbody Fusion Stand Alone Forms: Patient Portal/API, Stroke Signs & Symptoms, Surgery Discharge Discharge Data Primary Care Provider: Eileen Hector Quality VTE Deep Vein Thrombosis/Pulmonary Embolism Present on Admission: No
[2022-11-20] MEDS: METFORMIN HCL 500 MG TABLET 1000 MG PO (08:16)
[2022-11-20] MEDS: FERROUS SULFATE 325 MG TABLET PO (08:16)
[2022-11-20] MEDS: EZETIMIBE 10 MG TABLET PO (08:16)
[2022-11-20] MEDS: carvediloL 12.5 MG TABLET 25 MG PO (08:16)
[2022-11-20] MEDS: DOCUSATE 100 MG CAPSULE PO (08:16)
[2022-11-20 08:17] VITALS: O2SAT 94
[2022-11-20] MEDS: INSULIN NPH 100 UNIT/ML 10ML VIAL 35 UNIT SUBCUT (08:17)
[2022-11-20] MEDS: INSULIN LISPRO 100 UNIT/ML 3ML VIAL 10 UNIT SUBCUT ×2 (08:17→12:20)
--- NOTE | 2022-11-20 09:05 | PT.IPTN ---
Current Diagnoses Other spondylosis with radiculopathy, lumbar region (11/18/22) Spinal stenosis, lumbar region with neurogenic claudication (11/18/22) Arthrodesis status (11/18/22) Surgery Performed Operation Date: 11/18/22 11:15 Actual Procedures p L4-5, L5-S1 TLIF w. posterior instrumentation -Robot - Waleska Orta MD Physical Therapy Treatment Note M2 PT-IP Current Condition Start: 11/19/22 11:51 Freq: NEEDED Status: Active Protocol: Document 11/19/22 09:12 AB (Rec: 11/19/22 11:54 AB [id number]) Physical Therapy Current Condition Current Condition Evaluation Date 11/19/22 Treatment Diagnosis s/p L4-5, L5S1 TLIF; difficulty in walking Onset Date 11/18/22 M3 PT-IP Subjective Start: 11/19/22 11:51 Freq: NEEDED Status: Active Protocol: Document 11/20/22 09:41 TS (Rec: 11/20/22 10:18 TS [id number]) Subjective Physical Therapy Visit Type Type Treatment Note Visit Start Time 09:05 Visit Stop Time 09:40 Total Visit Minutes 35 Notes Spouse present for caregiver training. Vitals: BP supine 118/65, Sitting 104/65, Standing 76/45 , Supine after mobility 108/52 . Number of RN CLINICAL RESOURCE Visits 1 Physical Therapy Visit Comments Patient Comments Pt reports her pain is being well controlled, hasn't been up since yesterday, agreeable to PT. Therapy Pain Assessment Pain When Pain Assessed During Mobility Pain Present Pain Present Pain Reported M4 PT-IP Mobility and Gait Start: 11/19/22 11:51 Freq: NEEDED Status: Active Protocol: Document 11/20/22 09:41 TS (Rec: 11/20/22 10:18 TS [id number]) PT-Bed Mobility Assessment Rolling Type of Rolling Log Rolling Level of Assist Contact Guard Assistance Supine to Sit Supine to Sit Minimal Assistance,1 Person Assistance Sit to Supine Sit to Supine Contact Guard Assistance,1 Person Assistance Scooting Scooting to Edge of Bed Contact Guard Assistance Scooting Up and Down in Bed Maximum Assistance PT-Transfer Assessment Sit to and From Stand Sit to and from Stand Standby Assistance,Contact Guard Assistance Equipment Transfer Assistive Device Front Wheeled Walker Comments Mobility Comments Pt found resting in bed, spouse in room, BP in supine 118/65. Logroll CGA, provided cues for pushing through L heel and handrail assist. Pt scooted to EOB with some difficulty CGA, provided step stool undreneath feet for support on floor. BP taken in sitting 104/65, pt c/o of slight lightheadedness. Sit to stand CGA with FWW with step stool underneath feet. Pt ambulated ~40' in room CGA/SBA with FWW, has slow step thru gait with no buckling for LOB . Pt requested to use toilet, was SBA for stand to sit with BUE support on FWW. Sit to stand from toilet SBA with FWW , pt c/o sweats and increasing dizziness, BP in standing 76/ 45. Sit to supine CGA, pt demonstrated good carryover of sequencing. BP in supine 108/ 52, pt required MaxA for scooting to HOB. Pt was left in bed with call light nearby, spouse in room, RN notified of hypotension. Gait Assessment Gait Gait Assistance Required: Standby Assistance,Contact Guard Assist Distance (Feet) 40 Assistive Devices Assistive Device Gait Belt,Front Wheeled Walker Gait Deviations General Gait Pattern Antalgic,Decreased Stride Length,Decreased Feet Clearance Factors Limiting Gait Function Factors Limiting Gait Function Decreased Activity Tolerance, Decreased Strength,Pain Comments Gait Comments See mobility comments. PT-Balance Assessment Sitting Balance and Reactions Static Sitting Balance Ability Good Dynamic Sitting Balance Ability Good Standing Balance and Reactions Static Standing Balance Ability Good Dynamic Standing Balance Ability Fair Device Used FWW M5 PT-IP Objective Assessments Start: 11/19/22 11:51 Freq: NEEDED Status: Active Protocol: Document 11/19/22 09:12 AB (Rec: 11/19/22 13:29 AB [email or web address]) Orientation Orientation/Cognition Level of Alertness Alert Orientation Name,Place,Situation Language Function Ability No Deficits Noted Safety Awareness Decreased Safety Awareness Memory Description No Deficits Noted Gross Range of Motion Lower Extremity ROM Assessment Within Functional Limits Strength Comments Strength Comments RLE: 4-/5 LLE: 4/5 Sensation Assessment Sensation Gross Sensation WNL Muscle Tone Muscle Tone WNL Yes M6 PT-IP Treatment Start: 11/19/22 11:51 Freq: NEEDED Status: Active Protocol: Document 11/20/22 09:41 TS (Rec: 11/20/22 10:18 TS [id number]) Physical Therapy Treatment Education Education Provided Precautions,Weight Bearing Status,Post-Op Packet,Safety M7 PT-IP Assessment and Plan Start: 11/19/22 11:51 Freq: NEEDED Status: Active Protocol: Document 11/20/22 09:41 TS (Rec: 11/20/22 10:18 TS [id number]) PT Summary Assessment and Plan Potential Rehabilitation Potential Fair Summary Impairments Pain,ROM,Strength,Balance, Coordination,Bed Mobility, Transfers,Gait,Activity Tolerance Progress Towards Goals Slow Progress due to Medical Issues Assessment Summary Pt is making progress with her mobility but is limited by her orthostatic hypotension. BP taken in supine 118/65 prior to mobility. She is CGA for logroll, required cues for sequencing. She performed supine to sit with Yaz with cues for UE support. BP taken in sittting 104/65, c/o some lightheadedness. She was CGA for sit to stand and CGA/SBA for gait ~40' in room. During gait pt c/o increasing dizziness and cold sweats, BP 76/45 in standing. Pt was brought back to bed due to symptoms. Pt not able to complete 2 steps at this time but suspect she would be able if not for her low BP. PT continues to recommend home with assist at this time. Pt has spouse for 11/11 support and was present this session for caregiver training. Goals Bed Mobility Goal Standby Assistance Transfer Goal Standby Assistance,Front Wheeled Walker Gait Goal Standby Assistance,Front Wheel Walker Gait Distance 150 Other Goals improve bed mobility, transfers and ambulation using FWW mod I 250 ft up/down 2 platform steps using FWW SBA Days to Meet Goals 10 Frequency of Treatment Frequency Of Treatment Twice a Day Treatment Plan Physical Therapy Treatment Plan Bed Mobility Training,Transfer Training,Gait Training, Therapeutic Exercise,Balance Retraining,Post Op Education, Discharge Planning,Hot or Cold Pack,Neuromuscular Re-ed, Coordination Retraining,Manual Therapy Other Recommendations and Next Treatment Complete steps x2. Focus Precautions Lumbar Precautions Log Roll,No Twisting,Limit Bending,Lifting Restriction of 10 lbs,Gait Belt above Incisional Area Other Precautions Monitor BP. Recommendations To Nursing Amount of Assist Needed 1 Person Assist Discharge Recommendations PT Discharge Recommendations Home with Assistance Equipment Needed for Home Before FWW Discharge Transportation Needs at Discharge Private Vehicle
--- NOTE | 2022-11-20 10:09 | PC.NURSE ---
Addendum entered by Dipti Echavarria R.N. 11/20/22 15:15: called Dr. Orta and told him that patient said she is not ready to go home. explained to provider that she passed PT, but BP was 134 systolic laying down, 112 systolic when standing up and slightly light headed. Dr. Orta said she can go home because she meets all the criteria. Back dressing changed. Pt agreed to go home. dc paperwork and instructions provided. Addendum entered by Dipti Echavarria R.N. 11/20/22 13:26: faxed an update to OR for provider at 1154. also called OR but they were in surgery. at this time pt's BP 126/69 while standing up. pt still needs to work with PT. Addendum entered by Dipti Echavarria R.N. 11/20/22 11:38: pt sitting in the chair. pt's BP while standing was 106/57, then dropped to 83/40 after sitting in the chair, then 91/44. pt is still in chair. does not feel light headed or dizzy at this moment. Original Note: patient worked with PT, but was orthostatic, BP dropped to 76/45 and was light headed and diaphoretic per PT report.
--- NOTE | 2022-11-20 12:04 | OT.IPNOTE ---
Pt just got up to the recliner with RN, BP dropped and now resting in the recliner.
--- NOTE | 2022-11-20 14:14 | PT.IPTN ---
Current Diagnoses Other spondylosis with radiculopathy, lumbar region (11/18/22) Spinal stenosis, lumbar region with neurogenic claudication (11/18/22) Arthrodesis status (11/18/22) Surgery Performed Operation Date: 11/18/22 11:15 Actual Procedures p L4-5, L5-S1 TLIF w. posterior instrumentation -Robot - Waleska Orta MD Physical Therapy Treatment Note M2 PT-IP Current Condition Start: 11/19/22 11:51 Freq: NEEDED Status: Discharge Protocol: Document 11/19/22 09:12 AB (Rec: 11/19/22 11:54 AB [id number]) Physical Therapy Current Condition Current Condition Evaluation Date 11/19/22 Treatment Diagnosis s/p L4-5, L5S1 TLIF; difficulty in walking Onset Date 11/18/22 M3 PT-IP Subjective Start: 11/19/22 11:51 Freq: NEEDED Status: Discharge Protocol: Document 11/20/22 15:11 TS (Rec: 11/20/22 15:28 TS [id number]) Subjective Physical Therapy Visit Type Type Treatment Note Visit Start Time 14:14 Visit Stop Time 14:45 Total Visit Minutes 31 Notes Spouse present. BP: 128/67 sitting, 112/64 standing, supine 134/68. Number of MUSIC LEADER Visits 2 Physical Therapy Visit Comments Patient Comments Pt reporting some pain in L hip with bed mobility, requesting to use commode, agreeable to PT. Therapy Pain Assessment Pain When Pain Assessed During Mobility Pain Present Pain Present Pain Reported M4 PT-IP Mobility and Gait Start: 11/19/22 11:51 Freq: NEEDED Status: Discharge Protocol: Document 11/20/22 15:11 TS (Rec: 11/20/22 15:28 TS [id number]) PT-Bed Mobility Assessment Rolling Type of Rolling Log Rolling Level of Assist Contact Guard Assistance Supine to Sit Supine to Sit Minimal Assistance,1 Person Assistance Sit to Supine Sit to Supine Minimal Assistance,1 Person Assistance Scooting Scooting to Edge of Bed Contact Guard Assistance PT-Transfer Assessment Sit to and From Stand Sit to and from Stand Standby Assistance Equipment Transfer Assistive Device Front Wheeled Walker Transfers Transfer Destination Bedside Commode Transfer Technique Stand Step Pivot Transfer Ability Level of Assist Standby Assistance,Contact Guard Assistance Comments Mobility Comments Logroll CGA, provided cues for handrail assist and to come fully on side with LEs on EOB. Supine to sit Yaz for uprighting trunk and required cues for handplacement. Pt sat EOB reported some slight dizziness, BP 128/67. She scooted to EOB CGA with slow movement and some difficulty. Sit to stand SBA x1 with small step stool under feet, pt has good posture with no retroleaning in standing, BP 112/64. Stand step pivot transfer to commode SBA/CGA with FWW. After use of commode pt performed steps x2 with platform step and FWW Yaz from spouse. Pt back to bed sit to supine Yaz for LEs into bed, BP in supine 134/68. Pt was left in bed with call light nearby, spouse in room, RN notified. Gait Assessment Gait Gait Assistance Required: Standby Assistance,Contact Guard Assist Distance (Feet) 15 Assistive Devices Assistive Device Gait Belt,Front Wheeled Walker Gait Deviations General Gait Pattern Antalgic,Decreased Stride Length,Decreased Feet Clearance Factors Limiting Gait Function Factors Limiting Gait Function Decreased Activity Tolerance, Decreased Strength,Pain Comments Gait Comments Pt ambulated ~15' in room SBA/ CGA with slow step thru gait. Stair Climbing Assessment Evaluation Level of Assist On Stairs Minimal Assistance Devices Stair Climbing Assistive Devices Front Wheel Walker Technique/Endurance Stair Climbing Direction Ascend and Descend Stair Climbing Technique Step to Step Number of Steps Climbed 2 Comments Stair Climbing Comments See mobility comments. PT-Balance Assessment Sitting Balance and Reactions Static Sitting Balance Ability Good Dynamic Sitting Balance Ability Good Standing Balance and Reactions Static Standing Balance Ability Good Dynamic Standing Balance Ability Fair Device Used FWW M5 PT-IP Objective Assessments Start: 11/19/22 11:51 Freq: NEEDED Status: Discharge Protocol: Document 11/19/22 09:12 AB (Rec: 11/19/22 13:29 AB [email or web address]) Orientation Orientation/Cognition Level of Alertness Alert Orientation Name,Place,Situation Language Function Ability No Deficits Noted Safety Awareness Decreased Safety Awareness Memory Description No Deficits Noted Gross Range of Motion Lower Extremity ROM Assessment Within Functional Limits Strength Comments Strength Comments RLE: 4-/5 LLE: 4/5 Sensation Assessment Sensation Gross Sensation WNL Muscle Tone Muscle Tone WNL Yes M6 PT-IP Treatment Start: 11/19/22 11:51 Freq: NEEDED Status: Discharge Protocol: Document 11/20/22 15:11 TS (Rec: 11/20/22 15:28 TS [id number]) Physical Therapy Treatment Education Education Provided Precautions,Weight Bearing Status,Post-Op Packet,Safety M7 PT-IP Assessment and Plan Start: 11/19/22 11:51 Freq: NEEDED Status: Discharge Protocol: Document 11/20/22 15:11 TS (Rec: 11/20/22 15:28 TS [id number]) PT Summary Assessment and Plan Potential Rehabilitation Potential Fair Summary Impairments Pain,ROM,Strength,Balance, Coordination,Bed Mobility, Transfers,Gait,Activity Tolerance Progress Towards Goals Progressing Toward Goals Assessment Summary Pt made some progress with her mobility this session. She tolerated standing with decreased lightheadedness and dizziness this session. Her BP continues to drop but less so compared to this morning, see vital signs above. She continues to require some cueing for logroll and supine to sit. She did progress to stairs this afternoon with steps x2 Yaz on platform step with FWW. Pt and spouse were educated on proper sequencing of stairs. PT continues to recommend home with assist from spouse. Pt did report she would like to stay one more day to see if her BP can improve and her pain, RN was notified. Goals Bed Mobility Goal Standby Assistance Transfer Goal Standby Assistance,Front Wheeled Walker Gait Goal Standby Assistance,Front Wheel Walker Gait Distance 150 Other Goals improve bed mobility, transfers and ambulation using FWW mod I 250 ft up/down 2 platform steps using FWW SBA Days to Meet Goals 10 Frequency of Treatment Frequency Of Treatment Twice a Day Treatment Plan Physical Therapy Treatment Plan Bed Mobility Training,Transfer Training,Gait Training, Therapeutic Exercise,Balance Retraining,Post Op Education, Discharge Planning,Hot or Cold Pack,Neuromuscular Re-ed, Coordination Retraining,Manual Therapy Other Recommendations and Next Treatment Complete steps x2. Focus Precautions Lumbar Precautions Log Roll,No Twisting,Limit Bending,Lifting Restriction of 10 lbs,Gait Belt above Incisional Area Other Precautions Monitor BP. Recommendations To Nursing Amount of Assist Needed 1 Person Assist Discharge Recommendations PT Discharge Recommendations Home with Assistance Equipment Needed for Home Before FWW Discharge Transportation Needs at Discharge Private Vehicle
== END 2022-11-20 15:23 | disposition home or self-care (01) | DRG 455 ==
PROVIDERS: Admitting Provider Orthopaedic Surgery Orthopaedic Surgery of the Spine; PCP Family Medicine; Referring Provider Orthopaedic Surgery Orthopaedic Surgery of the Spine; Visit Provider Orthopaedic Surgery Orthopaedic Surgery of the Spine
PROC: 0SG00AJ Fusion of Lumbar Vertebral Joint with Interbody Fusion Device, Posterior Approach, Anterior Column, Open Approach (ICD-10-PCS; principal; 2022-11-18 11:15)
DX: M48.062 Spinal stenosis, lumbar region with neurogenic claudication (principal); M47.26 Other spondylosis with radiculopathy, lumbar region; I95.1 Orthostatic hypotension; I10 Essential (primary) hypertension; D64.9 Anemia, unspecified; E11.9 Type 2 diabetes mellitus without complications; F32.A Depression, unspecified; F41.9 Anxiety disorder, unspecified; Z79.84 Long term (current) use of oral hypoglycemic drugs; Z79.4 Long term (current) use of insulin
CPT/HCPCS: 36415; 72100; 76000; 82962; 85014; 85018; 94760; 97162; 97165; 97530; 97535; C1713; C9290; J0131; J0171; J0330; J0690; J1100; J1170; J1815; J2405; J2704; J3010